=== PATIENT | female | born 1995 | race Caucasian/White ===

== ENCOUNTER 2017-05-18 15:23 | Emergency (ER) | payer MEDICAID ==
[2017-05-18 15:38] VITALS: RESP 18; O2SAT 99
[2017-05-18 16:48] LABS: SQUAMOUS EPITHIAL 20 /hpf (0-5); URINE BACTERIA OCC (<OCC); URINE BILIRUBIN NEGATIVE (NEGATIVE); URINE BLOOD 3+ (NEGATIVE); URINE CLARITY Hazy (Clear); URINE COLOR Amber (YELLOW); URINE GLUCOSE (UA) NORMAL (Normal); URINE LEUKOCYTE ESTERASE TRACE Leu/uL (Negative); URINE NITRATE NEGATIVE (NEGATIVE); URINE PROTEIN 2+ mg/dL (NEGATIVE); URINE UROBILINOGEN NORMAL mg/dL (0.2-1.0)
--- NOTE | 2017-05-18 17:55 | C.PDOC ---
History Of Present Illness 21 y/o female presents to the ED with complaints of vaginal bleeding x2 days, using 1-2 pads per day. Her regular menses ended 1 week ago. She also reports pain with sex, unprotected with 1 partner. Pt reports seeing gunite mixer 3 weeks ago, given Rx for yeast infection which she never filled. She denies fever , abdominal pain, urinary symptoms or any other complaints. History of chlamydia treated in the past. Time Seen by Provider: 05/18/17 15:59 Chief Complaint (Nursing): Female Genitourinary History Per: Patient History/Exam Limitations: no limitations Onset/Duration Of Symptoms: Days Current Symptoms Are (Timing): Still Present Severity: Mild Associated Symptoms: denies: Fever, Nausea, Vomiting Alleviating Factors: None Recent travel outside of the [place]: No Abnormal Vaginal Bleeding: Yes Past Medical History Reviewed: Historical Data, Nursing Documentation, Vital Signs Vital Signs: Last Vital Signs Temp 98 F 05/18/17 17:55 Pulse 83 05/18/17 17:55 Resp 18 05/18/17 17:55 BP 109/70 05/18/17 17:55 Pulse Ox 99 05/18/17 17:57 - Medical History PMH: Asthma Family History: States: Unknown Family Hx - Social History Hx Alcohol Use: No Hx Substance Use: No Review Of Systems Constitutional: Negative for: Fever Gastrointestinal: Negative for: Nausea, Vomiting, Abdominal Pain Genitourinary: Positive for: Vaginal Bleeding, Other (painful intercourse). Negative for: Dysuria, Frequency Physical Exam - Physical Exam Appears: Non-toxic, No Acute Distress Skin: Warm, Dry, No Rash Head: Atraumatic, Normacephalic Chest: Symmetrical Cardiovascular: Rhythm Regular Respiratory: Normal Breath Sounds, No Rales, No Rhonchi, No Wheezing Gastrointestinal/Abdominal: Normal Exam, Soft, No Tenderness Pelvic: Normal External Exam, No Vaginal Discharge (no discharge noted due to bleeding), No Cervical Motion Tenderness, Other (Chaperoned by painting technician Zoey. Light bleeding to cervical os. Left adnexal fullness) Neurological/Psych: Oriented x3, Normal Speech ED Course And Treatment O2 Sat by Pulse Oximetry: 99 (room air) Pulse Ox Interpretation: Normal Progress Note: GC/Chlamydia sent, UA, U-preg. Pt has appointment with [facility] ANALYST tomorrow Disposition Counseled Patient/Family Regarding: Studies Performed, Diagnosis, Need For Followup, Rx Given - Disposition Disposition: HOME/ ROUTINE Disposition Time: 17:55 Condition: STABLE Additional Instructions: Take medication as prescribed. Follow up with your gunite mixer tomorrow. Recommend only protected sex with condoms. Prescriptions: Nitrofurantoin Macrocrystals [Macrobid] 100 mg PO BID #14 cap Instructions: Dysfunctional Uterine Bleeding (ED), Urinary Tract Infection in Women (ED) Forms: General Discharge Instructions - Clinical Impression Clinical Impression: UTI (urinary tract infection), DUB (dysfunctional uterine bleeding) - PA / CLERICAL OFFICE / Resident Statement MD/DO has reviewed & agrees with the documentation as recorded. - Scribe Statement The provider has reviewed the documentation as recorded by the Darby Hollins All medical record entries made by the Darby were at my direction and personally dictated by me. I have reviewed the chart and agree that the record accurately reflects my personal performance of the history, physical exam, medical decision making, and the department course for this patient. I have also personally directed, reviewed, and agree with the discharge instructions and disposition.
[2017-05-18 17:56] VITALS: BP 109/70; PULSE 83; TEMP 98
== END 2017-05-18 18:02 | disposition home or self-care (01) ==
LOC: C.ER 15:23
DX: N93.8 Other specified abnormal uterine and vaginal bleeding (principal); N39.0 Urinary tract infection, site not specified